=== PATIENT | female | born 1990 | race Native Hawaiian/Other Pacific Islander ===

== ENCOUNTER 2020-03-13 19:50 | Emergency (ER) | payer OTHER ==
[~2020-03-13] VITALS: Ht 160 cm; Wt 61.2 kg
[2020-03-13 21:06] VITALS: BP 105/68; TEMP 99
== END 2020-03-13 21:06 | disposition home or self-care (01) ==
LOC: ED 19:59
DX: M54.5 Low back pain (principal); G89.29 Other chronic pain
CPT/HCPCS: 99282

== ENCOUNTER 2020-03-14 10:32 | Emergency (ER) | payer OTHER ==
[~2020-03-14] VITALS: Ht 160 cm; Wt 61.2 kg
[2020-03-14 10:35] VITALS: TEMP 98.8
[2020-03-14 12:27] VITALS: BP 101/56
== END 2020-03-14 12:27 | disposition home or self-care (01) ==
LOC: ED 10:32
DX: J06.9 Acute upper respiratory infection, unspecified (principal); Z20.828 Contact with and (suspected) exposure to other viral communicable diseases; F17.210 Nicotine dependence, cigarettes, uncomplicated
CPT/HCPCS: 87502; 87635; 87651; 99283; U0003